=== PATIENT | female | born 1970 | race Caucasian/White ===

== ENCOUNTER 2023-09-11 07:09 | Emergency (ER) | payer SELFPAY ==
[2023-09-11 07:14] VITALS: BP 156/83; PULSE 66; RESP 20; TEMP 36.7; O2SAT 99; BMI 31.2
--- NOTE | 2023-09-11 07:22 | ED.GENADUL1 ---
HPI - General Adult General Chief complaint: Upper Respiratory Infection Stated complaint: SHORTNESS OF BREATH/URTI Time Seen by Provider: 09/11/23 07:15 Source: patient Mode of arrival: walk-in History of Present Illness HPI narrative: cough, congestion for about a week with diarrhea, nausea and vomiting the started around 4am this morning. She was able to drink half of a bottle of water on the way here without vomiting. No fever or chills. Cough is mild and minimally productive. No abdominal pain or flank pain. No urinary symptoms. She took a home covid test several days ago that was negative. Related Data Previous Rx's Medication Instructions Recorded ondansetron 4 mg disintegrating 4 mg PO Q6H PRN nausea and 09/11/23 tablet vomiting #14 tabs Allergies Allergy/AdvReac Type Severity Reaction Status Date / Time No Known Drug Allergies Allergy Verified 09/11/23 07:17 Exam Narrative Exam Narrative: Nurses notes and vital signs reviewed and patient is not hypoxic. afebrile General: Well-appearing and in no apparent distress. Skin: Warm, dry, no pallor noted. No rash. Head: Normocephalic, atraumatic. Neck: Supple, non-tender. No cervical lymphadenopathy. No meningismus. Eye: Pupils are equal, round and EOMI. No scleral icterus. Ears, Nose, Mouth, and Throat: TM are clear, mild posterior oropharynx erythema and nasal mucosal hypertrophy, uvula is mid-line. Oral mucosa is moist Cardiovascular: Regular Rate and Rhythm without murmur, gallop or rub. Respiratory: No accessory muscle use or respiratory distress. Lungs are clear to auscultation, no wheezing, rales or rhonchi Back: No CVA tenderness Musculoskeletal: normal ROM, no lower extremity edema/swelling GI: Abdomen is soft, non-distended. Normal bowel sounds. No tenderness to palpation. No rebound, guarding, or rigidity noted. Neurological: A&O x4. No cranial nerve dysfunction observed. No truncal ataxia. Moves all extremities. Sensation intact. Psychiatric: Cooperative and interactive. Normal mood and affect. Constitutional Vital Signs, click to edit/add: Last Vital Signs Temp 98.1 F 09/11/23 07:14 Pulse 66 09/11/23 07:14 Resp 20 09/11/23 07:14 BP 156/83 H 09/11/23 07:14 Pulse Ox 99 09/11/23 07:14 O2 Del Method Room Air 09/11/23 07:14 Course Vital Signs Vital signs: Vital Signs Temperature 98.1 F 09/11/23 07:14 Pulse Rate 66 09/11/23 07:14 Respiratory Rate 20 09/11/23 07:14 Blood Pressure 156/83 H 09/11/23 07:14 Pulse Oximetry 99 09/11/23 07:14 Oxygen Delivery Method Room Air 09/11/23 07:14 Temperature 98.1 F 09/11/23 07:14 Pulse Rate 66 09/11/23 07:14 Respiratory Rate 20 09/11/23 07:14 Blood Pressure 156/83 H 09/11/23 07:14 Pulse Oximetry 99 09/11/23 07:14 Oxygen Delivery Method Room Air 09/11/23 07:14 Medical Decision Making MDM Narrative Medical decision making narrative: The patient was given oral dissolvable Zofran. Swabs obtained for COVID and influenza - both were negative. Patient felt better after ED treatment and was able to be discharged home with prescription for Zofran ODT and recommendation to start with clear liquid diet until nausea and vomiting resolved and then advance diet. ED return if worse. Lab Data Lab results reviewed: Yes I reviewed the patient's lab results Labs: Lab Results 09/11/23 Range/Units 07:27 Influenza Type A Ag Negative Influenza Type B Ag Negative SARS-CoV-2 Ag (CV2AG) Negative (NEGATIVE) Discharge Plan Discharge Chief Complaint: Upper Respiratory Infection Clinical Impression: Upper respiratory infection, Gastroenteritis, Viral syndrome Patient Disposition: Home, Self-Care Time of Disposition Decision: 07:55 Prescriptions / Home Meds: New ondansetron 4 mg tablet,disintegrating 4 mg PO Q6H PRN (Reason: nausea and vomiting) Qty: 14 0RF Instructions: Upper Respiratory Infection (ED), Gastroenteritis (ED), Viral Syndrome (ED) Stand Alone Forms: Portal Instructions Referrals: Physician,Non-Staff, MD [Primary Care Provider] - 1 week
[2023-09-11] MEDS: ONDANSETRON 4 MG RAPDIS TABLET SL (07:43)
[2023-09-11 07:52] LABS: Influenza Virus A Antigen Negative; Influenza Virus B Antigen Negative; Internal Control Within Normal Limits; SARS-CoV-2 Ag NEGATIVE (NEGATIVE)
== END 2023-09-11 08:04 | disposition home or self-care (01) ==
PROVIDERS: Emergency Provider Emergency Medicine
DX: J06.9 Acute upper respiratory infection, unspecified (principal); K52.9 Noninfective gastroenteritis and colitis, unspecified; Z20.822 Contact with and (suspected) exposure to COVID-19; B34.9 Viral infection, unspecified
CPT/HCPCS: 87804; 87811; 99283; Q0162

== ENCOUNTER 2024-05-01 05:41 | Emergency (ER) | payer SELFPAY ==
[2024-05-01 05:44] VITALS: BP 178/116; PULSE 81; TEMP 36.7; O2SAT 98; BMI 32.3
--- NOTE | 2024-05-01 05:57 | US_ITS ---
The [address] [address] Patient Name: ELLIS JEAN BAPTISTE MRN: [id number] date: 1970 Sex: F Assigned Patient Location: ED.MAIN Current Patient Location: ER Accession/Order Number: [id number] Exam Date: 05/01/2024 07:00 Report Date: 05/01/2024 07:49 At the request of: JAY MCLAUGHLIN Procedure: US right upper quadrant CLINICAL HISTORY: Cholecystitis. Epigastric pain. EXAMINATION: Right upper quadrant ultrasound: 05/01/2024. COMPARISON: None. FINDINGS: Static images from real-time examination using sauceda scale, color Doppler sonography are provided which demonstrate the visualized pancreas seems normal. Liver demonstrates no discrete lesions. The visualized inferior vena cava is normal. Overall evaluation is somewhat limited due to overlying bowel gas. The liver measures 18.0 cm in craniocaudal dimension. There is normal flow within the visualized intrahepatic portal as well as hepatic veins. The evaluation of the fundus of the gallbladder is slightly limited due to overlying bowel gas however there is no wall thickening, pericholecystic fluid or cholelithiasis. The patient was not tender over the gallbladder during the real-time examination. Common bile duct measures 6.6 cm while the nondependent wall measures 2.2 mm. The right kidney overall measures 10.6 x 4.7 x 4.1 cm with a volume of 107.4 mL with cortical thickness of 0.9 cm. There is no mass, hydronephrosis, nephrolithiasis or perinephric fluid collections. US/US right upper quadrant IMPRESSION: No sonographic evidence of acute cholecystitis or cholelithiasis. The remaining study is grossly within normal limits. Electronically authenticated by: LIS DOLL Date: 05/01/2024 07:49
--- NOTE | 2024-05-01 05:59 | ED_ITS ---
HPI - Abdominal Pain General Chief Complaint: Abdominal Pain Stated Complaint: abd pain Time Seen by Provider: 05/01/24 05:54 Source: patient Mode of arrival: walk-in Limitations: no limitations History of Present Illness HPI narrative: presents complaining of abdominal pain that started yesterday. Increased last PM after eating around 7pm. No nausea or vomiting or fever. increased pain of her abdomen with deep breath. No urinary symptoms Related Data Home Medications ?Medication ?Instructions ?Recorded ?Confirmed No Known Home Medications 05/01/24 05/01/24 Allergies Allergy/AdvReac Type Severity Reaction Status Date / Time No Known Drug Allergies Allergy Verified 05/01/24 05:49 Review of Systems ROS Status of ROS 10 or more systems reviewed and unremark able except as noted in history and below PFSH PFSH Social History Little interest or pleasure in doing things: not at all Feeling down, depressed, or hopeless: not at all Exam Constitutional Vital Signs, click to edit/add: Last Vital Signs Temp 98.0 F 05/01/24 05:44 Pulse 81 05/01/24 05:44 Resp 18 05/01/24 05:44 BP 178/116 H 05/01/24 05:44 Pulse Ox 98 05/01/24 05:44 O2 Del Method Room Air 05/01/24 05:44 Common normals: average body habitus, oriented x3, no limitations, healthy appearing, alert and well nourished General appearance: in distress [facility] Common normals: normocephalic and head/scalp atraumatic Eye Common normals: PERRL, EOMs intact bilaterally and conjunctivae normal Respiratory Common normals: normal respiratory effort, no retractions, no use of accessory muscles and clear to auscultation bilaterally Cardio Common normals: regular rate, regular rhythm, S1 normal heart sound and S2 normal heart sound GI Common normals: Normal to inspection, nondistended, normoactive bowel sounds present and soft to palpation Other: RUQ tenderness Extremity Common normals: normal to inspection and full ROM Neuro Common normals: oriented x3, CN's II-XII intact bilaterally, moves all extremities and no focal motor deficits Psych Appearance: grossly normal Course Vital Signs Vital signs: Vital Signs Temperature 98.0 F 05/01/24 05:44 Pulse Rate 81 05/01/24 05:44 Respiratory Rate 18 05/01/24 05:44 Blood Pressure 178/116 H 05/01/24 05:44 Pulse Oximetry 98 05/01/24 05:44 Oxygen Delivery Method Room Air 05/01/24 05:44 Temperature 98.0 F 05/01/24 05:44 Pulse Rate 81 05/01/24 05:44 Respiratory Rate 18 05/01/24 05:44 Blood Pressure 178/116 H 05/01/24 05:44 Pulse Oximetry 98 05/01/24 05:44 Oxygen Delivery Method Room Air 05/01/24 05:44 MDM - Abdominal Pain MDM Narrative Medical decision making narrative: patient presents with abdominal pain that started yesterday and increased last night around 7pm after her last meal. Points to RUQ as site of the pain. No nausea of vomiting or radiation of the pain. Exam with RUQ tenderness. DD if broad and includes referred pain from lungs, PE, CAD, pancreatitis, colitis and cholecystitis, appendicitis and renal colic. Clinically suspect cholecystitis/cholelithiasis as most likely. labs and ultrasound ordered. Patient medicated with fentanyl. Care to be transferred to oncoming physician at change of shift Lab Data Labs: Lab Results 05/01/24 Range/Units 05:48 WBC 6.8 (4.0-11.0) 10^3/uL RBC 3.73 L (4.20-5.40) 10^6/uL Hgb 11.7 L (12.0-16.0) g/dL Hct 35.3 L (36.0-48.0) % MCV 94.6 (81.0-99.0) fL MCH 31.4 (26.7-34.0) pg MCHC 33.1 (29.9-35.2) g/dL RDW 12.7 (11.0-15.0) % Plt Count 258 (150-450) 10^3/uL MPV 9.0 L (9.5-13.5) fL Neut % (Auto) 45.8 (43.0-75.0) % Lymph % (Auto) 41.4 (20.5-60.0) % [place] % (Auto) 9.3 (1.7-12.0) % Eos % (Auto) 2.5 (0.9-7.0) % Baso % (Auto) 0.7 (0.2-2.0) % Neut # (Auto) 3.1 (1.4-6.5) 10^3/uL Lymph # (Auto) 2.8 (1.2-3.8) 10^3/uL [place] # (Auto) 0.6 (0.3-0.8) 10^3/uL Eos # (Auto) 0.2 (0.0-0.7) 10^3/uL Baso # (Auto) 0.1 (0.0-0.1) 10^3/uL Abs Immat Gran (auto) 0.02 (0.00-0.03) 10^3/uL Imm/Tot Granulo (auto) 0.3 (0.0-0.5) % Sodium 138 (136-145) mmol/L Potassium 3.9 (3.5-5.1) mmol/L Chloride 102 (98-107) mmol/L Carbon Dioxide 25.3 (21.0-32.0) mmol/L Anion Gap 14.6 BUN 19.0 H (7.0-18.0) mg/dL Creatinine 0.95 (0.55-1.02) mg/dL Est GFR ( Amer) >60 (>=60) Est GFR (Non-Af Amer) >60 (>=60) BUN/Creatinine Ratio 20.0 Glucose 111 H (74-106) mg/dL Lactate 1.4 (0.4-2.0) mmol/L Calcium 9.7 (8.5-10.1) mg/dL Total Bilirubin 0.3 (0.2-1.0) mg/dL AST 20 (15-37) U/L ALT 24 (14-59) U/L Alkaline Phosphatase 70 (46-116) U/L Troponin I High Sens 4.9 (4.0-51.3) pg/mL Total Protein 7.2 (6.4-8.2) g/dL Albumin 4.0 (3.4-5.0) g/dL Globulin 3.2 g/dL Albumin/Globulin Ratio 1.3 Lipase 54.0 (16.0-77.0) U/L Discharge Plan Discharge Chief Complaint: Abdominal Pain Clinical Impression: Abdominal pain Prescriptions / Home Meds: No Action No Known Home Medications Print Language: Nam[place]ian Referrals: Physician,Non-Staff, [Primary Care Provider] - 1 week
--- NOTE | 2024-05-01 06:00 | XR_ITS ---
The [address] [address] Patient Name: ELLIS JEAN BAPTISTE MRN: [id number] date: 1970 Sex: F Assigned Patient Location: ER Current Patient Location: ER Accession/Order Number: [id number] Exam Date: 05/01/2024 06:05 Report Date: 05/01/2024 06:18 At the request of: JAY MCLAUGHLIN Procedure: XR chest 1V EXAMINATION: XR chest 1V HISTORY: abdominal pain COMPARISON: No relevant comparison available. FINDINGS: LUNGS: Underexpanded lungs with mild haziness and stranding within lung bases. VASCULATURE: No increased pulmonary vasculature. PLEURA: No pneumothorax, effusion, or pleural thickening. CARDIAC: No cardiomegaly or cardiac silhouette abnormality. MEDIASTINUM: No visible mass or adenopathy. BONES: No fracture or visible bone lesion. OTHER: Negative. XR/XR chest 1V IMPRESSION: 1. Low lung volume examination with mild bibasilar atelectasis versus infiltrates. Electronically authenticated by: MARY LYNNE Date: 05/01/2024 06:18
[2024-05-01 06:02] LABS: Basophils Absolute Auto 0.1 10^3/uL (0.0-0.1); Basophils Percent Auto 0.7 % (0.2-2.0); Eosinophils Absolute Auto 0.2 10^3/uL (0.0-0.7); Eosinophils Percent Auto 2.5 % (0.9-7.0); Hematocrit 35.3 % (36.0-48.0); Hemoglobin 11.7 g/dL (12.0-16.0); Immature Granulocytes Abs Auto 0.02 10^3/uL (0.00-0.03); Immature Granulocytes Pct Auto 0.3 % (0.0-0.5); Lymphocytes Absolute Auto 2.8 10^3/uL (1.2-3.8); Lymphocytes Percent Auto 41.4 % (20.5-60.0); Mean Corpuscular HGB Conc 33.1 g/dL (29.9-35.2); Mean Corpuscular Hemoglobin 31.4 pg (26.7-34.0); Mean Corpuscular Volume 94.6 fL (81.0-99.0); Monocytes Absolute Auto 0.6 10^3/uL (0.3-0.8); Monocytes Percent Auto 9.3 % (1.7-12.0); Neutrophils Absolute Auto 3.1 10^3/uL (1.4-6.5); Neutrophils Percent Auto 45.8 % (43.0-75.0); Platelet Count 258 10^3/uL (150-450); Red Blood Count 3.73 10^6/uL (4.20-5.40); Red Cell Distribution Width 12.7 % (11.0-15.0); White Blood Count 6.8 10^3/uL (4.0-11.0)
[2024-05-01 06:19] LABS: Lactate/Lactic Acid 1.4 mmol/L (0.4-2.0)
[2024-05-01] MEDS: FENTANYL CITRATE/PF 100 MCG/2 ML VIAL 50 MCG IV (06:19)
[2024-05-01 06:26] LABS: Alanine Aminotransferase 24 U/L (14-59); Albumin Globulin Ratio 1.3; Alkaline Phosphatase 70 U/L (46-116); Anion Gap 14.6; Aspartate Amino Transferase 20 U/L (15-37); Bilirubin Total 0.3 mg/dL (0.2-1.0); Calcium 9.7 mg/dL (8.5-10.1); Carbon Dioxide 25.3 mmol/L (21.0-32.0); Chloride 102 mmol/L (98-107); Estimated GFR (African America >60 (>=60); Estimated GFR (Non-African Ame >60 (>=60); Globulin 3.2 g/dL; Glucose 111 mg/dL (74-106); Potassium 3.9 mmol/L (3.5-5.1); Sodium 138 mmol/L (136-145); Total Protein 7.2 g/dL (6.4-8.2); Troponin I High Sensitivity 4.9 pg/mL (4.0-51.3)
--- NOTE | 2024-05-01 06:33 | ECG_ITS ---
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
[2024-05-01 07:06] LABS: Bilirubin Urine NEGATIVE (NEGATIVE); Blood Urine TRACE-I (NEGATIVE); Clarity Urine CLEAR (CLEAR); Color Urine LT. YELLOW (YELLOW); Glucose Urine UA NEGATIVE (NEGATIVE); Ketones Urine NEGATIVE (NEGATIVE); Leukocyte Esterase Urine NEGATIVE (NEGATIVE); Nitrite Urine NEGATIVE (NEGATIVE); Protein Urine NEGATIVE (NEG/TRACE); Specific Gravity Urine 1.015 (1.005-1.025); Urobilinogen Urine 0.2 EU/dL (0.2-1.0); pH Urine 5.5 (5.0-9.0)
[2024-05-01 07:11] LABS: Urine Microscopic Indicated YES
[2024-05-01 07:17] LABS: Bacteria Urine NONE SEEN #/HPF (NONE SEEN); Mucus Urine NONE SEEN (NONE SEEN); RBC Urine 0-2 #/HPF (0-2); Squamous Epithelial Cell Urine FEW #/LPF (NONE/RARE); Urine Culture Indicated NO; WBC Urine NONE SEEN #/HPF (NONE SEEN)
[2024-05-01 07:23] VITALS: BP 136/79; PULSE 64; O2SAT 94
--- NOTE | 2024-05-01 08:11 | CT_ITS ---
The [address] [address] Patient Name: ELLIS JEAN BAPTISTE MRN: [id number] date: 1970 Sex: F Assigned Patient Location: ER Current Patient Location: ER Accession/Order Number: [id number] Exam Date: 05/01/2024 08:48 Report Date: 05/01/2024 09:16 At the request of: DESMOND ROCHA Procedure: CT abdomen pelvis w con EXAM: CT abdomen pelvis w con HISTORY: Abdominal pain COMPARISON: None. TECHNIQUE: Following intravenous administration of 100 mL of Omnipaque 300, axial soft tissue windows of the abdomen and pelvis were performed with coronal and sagittal reformats. CT dose reduction technique was used including Automated Exposure Control. Findings: There is fatty infiltration of the liver. The gallbladder, spleen, pancreas, and adrenal glands are unremarkable. No renal stones or collecting system dilatation. There are bilateral renal low-attenuation lesions, too small to characterize. The bilateral ureters are nondilated. Evaluation of the bowel is limited given the absence of oral contrast. There is a region of wall thickening involving the proximal ascending colon. The upstream cecum is prominent yet not technically nondilated. The appendix is nondilated. The aorta is normal caliber. Mild atherosclerotic disease. No enlarged abdominal lymph nodes or free abdominal fluid. Tiny fat-containing umbilicus hernia. Pelvis: Unremarkable bladder. The uterus is surgically absent. No enlarged pelvic lymph nodes or free pelvic fluid. No aggressive sclerotic or lytic osseous lesions. Mild multilevel degenerative spondylosis. CT/CT abdomen pelvis w con IMPRESSION: 1. There is wall thickening involving the proximal ascending colon. The upstream cecum is prominent, yet not technically dilated. Findings may relate to colitis. There is clinical concern for underlying mucosal lesion, consider follow-up colonoscopy. 2. No other acute abdominal or pelvic abnormality. 3. Fatty liver. 4. Other nonemergent findings, as described above. Electronically authenticated by: STEVE ALFONSO Date: 05/01/2024 09:16
[2024-05-01] MEDS: MORPHINE SULFATE 4 MG/ML VIAL IV (08:16)
[2024-05-01 08:58] VITALS: BP 124/86; PULSE 59; O2SAT 100
--- NOTE | 2024-05-01 09:30 | ED_ITS ---
HPI - Abdominal Pain General Chief Complaint: Abdominal Pain Stated Complaint: abd pain Time Seen by Provider: 05/01/24 05:54 Source: patient Mode of arrival: walk-in Limitations: no limitations History of Present Illness HPI narrative: 53-year-old female presents to the emergency department and was initially seen by Dr. Astudillo and signed out to me after discussing the case with him thoroughly. Please see his full history and physical exam. Related Data Previous Rx's ?Medication ?Instructions ?Recorded acetaminophen 300 mg-codeine 30 mg 1 tab PO Q6H PRN pain 5 days #20 05/01/24 tablet tabs ciprofloxacin HCl 500 mg tablet 500 mg PO Q12H #20 tabs 05/01/24 (Cipro) metronidazole 500 mg tablet 500 mg PO TID #30 tabs 05/01/24 ondansetron 4 mg disintegrating 4 mg PO Q6H PRN nausea and 05/01/24 tablet vomiting #20 tabs Allergies Allergy/AdvReac Type Severity Reaction Status Date / Time No Known Drug Allergies Allergy Verified 05/01/24 05:49 PFSH PFSH Social History Little interest or pleasure in doing things: not at all Feeling down, depressed, or hopeless: not at all Exam Constitutional Vital Signs, click to edit/add: Last Vital Signs Temp 98.0 F 05/01/24 05:44 Pulse 59 L 05/01/24 08:58 Resp 18 05/01/24 08:58 BP 124/86 05/01/24 08:58 Pulse Ox 100 05/01/24 08:58 O2 Del Method Room Air 05/01/24 05:44 Course Vital Signs Vital signs: Vital Signs Temperature 98.0 F 05/01/24 05:44 Pulse Rate 81 05/01/24 05:44 Respiratory Rate 18 05/01/24 05:44 Blood Pressure 178/116 H 05/01/24 05:44 Pulse Oximetry 98 05/01/24 05:44 Oxygen Delivery Method Room Air 05/01/24 05:44 Temperature 98.0 F 05/01/24 05:44 Pulse Rate 59 L 05/01/24 08:58 Respiratory Rate 18 05/01/24 08:58 Blood Pressure 124/86 05/01/24 08:58 Pulse Oximetry 100 05/01/24 08:58 Oxygen Delivery Method Room Air 05/01/24 05:44 MDM - Abdominal Pain MDM Narrative Medical decision making narrative: CT scan is consistent with colitis. Gallbladder ultrasound was negative. She is able to be discharged home on Flagyl and Cipro and was provided pain medicine and antiemetic as well. Treatment diagnosis and follow-up were discussed with t jamilah patient. Differential Diagnosis Differential diagnosis: Likely abdominal pain, calculus of kidney, constipation, diverticulitis, gastroenteritis and pancreatitis Lab Data Attestation: I reviewed the patient's lab results. Labs: Lab Results 05/01/24 05/01/24 Range/Units 05:48 06:55 WBC 6.8 (4.0-11.0) 10^3/uL RBC 3.73 L (4.20-5.40) 10^6/uL Hgb 11.7 L (12.0-16.0) g/dL Hct 35.3 L (36.0-48.0) % MCV 94.6 (81.0-99.0) fL MCH 31.4 (26.7-34.0) pg MCHC 33.1 (29.9-35.2) g/dL RDW 12.7 (11.0-15.0) % Plt Count 258 (150-450) 10^3/uL MPV 9.0 L (9.5-13.5) fL Neut % (Auto) 45.8 (43.0-75.0) % Lymph % (Auto) 41.4 (20.5-60.0) % [place] % (Auto) 9.3 (1.7-12.0) % Eos % (Auto) 2.5 (0.9-7.0) % Baso % (Auto) 0.7 (0.2-2.0) % Neut # (Auto) 3.1 (1.4-6.5) 10^3/uL Lymph # (Auto) 2.8 (1.2-3.8) 10^3/uL [place] # (Auto) 0.6 (0.3-0.8) 10^3/uL Eos # (Auto) 0.2 (0.0-0.7) 10^3/uL Baso # (Auto) 0.1 (0.0-0.1) 10^3/uL Abs Immat Gran (auto) 0.02 (0.00-0.03) 10^3/uL Imm/Tot Granulo (auto) 0.3 (0.0-0.5) % Sodium 138 (136-145) mmol/L Potassium 3.9 (3.5-5.1) mmol/L Chloride 102 (98-107) mmol/L Carbon Dioxide 25.3 (21.0-32.0) mmol/L Anion Gap 14.6 BUN 19.0 H (7.0-18.0) mg/dL Creatinine 0.95 (0.55-1.02) mg/dL Est GFR ( Amer) >60 (>=60) Est GFR (Non-Af Amer) >60 (>=60) BUN/Creatinine Ratio 20.0 Glucose 111 H (74-106) mg/dL Lactate 1.4 (0.4-2.0) mmol/L Calcium 9.7 (8.5-10.1) mg/dL Total Bilirubin 0.3 (0.2-1.0) mg/dL AST 20 (15-37) U/L ALT 24 (14-59) U/L Alkaline Phosphatase 70 (46-116) U/L Troponin I High Sens 4.9 (4.0-51.3) pg/mL Total Protein 7.2 (6.4-8.2) g/dL Albumin 4.0 (3.4-5.0) g/dL Globulin 3.2 g/dL Albumin/Globulin Ratio 1.3 Lipase 54.0 (16.0-77.0) U/L Urine Color Lt. yellow (YELLOW) Urine Clarity Clear (CLEAR) Urine pH 5.5 (5.0-9.0) Ur Specific [place] 1.015 (1.005-1.025) Urine Protein Negative (NEG/TRACE) mg/dL Urine Glucose (UA) Negative (NEGATIVE) mg/dL Urine Ketones Negative (NEGATIVE) mg/dL Urine Occult Blood Trace-i (NEGATIVE) Urine Nitrite Negative (NEGATIVE) Urine Bilirubin Negative (NEGATIVE) Urine Urobilinogen 0.2 (0.2-1.0) EU/dL Ur Leukocyte Esterase Negative (NEGATIVE) Urine RBC 0-2 (0-2) #/HPF Urine WBC None seen (NONE SEEN) #/HPF Ur Squamous Epith Cells Few A (NONE/RARE) #/LPF Urine Bacteria None seen (NONE SEEN) #/HPF Urine Mucus None seen (NONE SEEN) Ur Culture Indicated? No Imaging Data CT scan - abdomen: Radiologist's impression: ITS Impressions Upper Quadrant Ultrasound 05/01/24 05:57 IMPRESSION: No sonographic evidence of acute cholecystitis or cholelithiasis. The remaining study is grossly within normal limits. Electronically authenticated by: LIS DOLL Date: 05/01/2024 07:49 Chest X-Ray 05/01/24 06:00 IMPRESSION: 1. Low lung volume examination with mild bibasilar atelectasis versus infiltrates. Electronically authenticated by: MARY LYNNE Date: 05/01/2024 06:18 Abdomen/Pelvis CT 05/01/24 08:11 IMPRESSION: 1. There is wall thickening involving the proximal ascending colon. The upstream cecum is prominent, yet not technically dilated. Findings may relate to colitis. There is clinical concern for underlying mucosal lesion, consider follow-up colonoscopy. 2. No other acute abdominal or pelvic abnormality. 3. Fatty liver. 4. Other nonemergent findings, as described above. Electronically authenticated by: STEVE ALFONSO Date: 05/01/2024 09:16 Discharge Plan Discharge Chief Complaint: Abdominal Pain Clinical Impression: Colitis Patient Disposition: Home, Self-Care Time of Disposition Decision: 09:28 Condition: Good Mode of Transportation: Private Vehicle Prescriptions / Home Meds: New metronidazole 500 mg tablet 500 mg PO TID Qty: 30 0RF acetaminophen-codeine 300-30 mg tablet 1 tab PO Q6H PRN (Reason: pain) 5 Days Qty: 20 0RF ciprofloxacin HCl [Cipro] 500 mg tablet 500 mg PO Q12H Qty: 20 0RF ondansetron 4 mg tablet,disintegrating 4 mg PO Q6H PRN (Reason: nausea and vomiting) Qty: 20 0RF Print Language: Faroese Instructions: Colitis (ED) Referrals: Physician,Non-Staff, MD [Primary Care Provider] - 1 week
[2024-05-01 09:37] VITALS: BP 132/77; PULSE 60; TEMP 36.4; O2SAT 98
== END 2024-05-01 09:41 | disposition home or self-care (01) ==
PROVIDERS: Internal Medicine; Emergency Provider Emergency Medicine
DX: K52.9 Noninfective gastroenteritis and colitis, unspecified (principal)
CPT/HCPCS: 36415; 71045; 74177; 76705; 80053; 81001; 83605; 83690; 84484; 85025; 93005; 96374; 96375; 99285; J2270; J3010; Q9967